=== PATIENT | male | born 1960 | race Caucasian/White ===

== ENCOUNTER 2022-04-26 17:03 | Emergency (ER) | payer MEDICARE ==
[~2022-04-26] VITALS: Ht 182.8 cm; Wt 93.0 kg
[2022-04-26] MEDS ORDERED: PENICILLIN-VK500 MG PO (18:25)
== END 2022-04-26 18:39 | disposition home or self-care (01) ==
LOC: ED 17:03
DX: K08.89 Other specified disorders of teeth and supporting structures (principal); Z88.8 Allergy status to other drugs, medicaments and biological substances